=== PATIENT | female | born 1970 | race Caucasian/White ===

== ENCOUNTER 2024-05-16 14:10 | Emergency (ER) | payer OTHER ==
[2024-05-16 14:34] VITALS: TEMP 97.5; O2SAT 97
--- NOTE | 2024-05-16 14:43 | ERPHSYRPT ---
- History of Present Illness Time Seen by Provider: 05/16/24 14:42 Source: patient Exam Limitations: no limitations Patient Subjective Stated Complaint: Pt reports she was moving a box when she tripped and fell landing on left shoulder. Pt has had surgery on left shoulder and is scheduled to have another surgery this fall due to rotator cuff tear. Triage Nursing Assessment: Pt alert and oriented x3. Respirations easy/nonlabored. Skin w/p/d. Ambulated to ED cot without difficulty. Accompanied by sister. Left shoulder pain rated 7/10. Physician History: Patient fell on left shoulder causing a stretch of brachial plexus. She has a known rotator cuff tear that needs surgery and she is concerned she has fractured her shoulder or worsened the tear. She has intermittent numbness and tingling of the LUE. Patient is also extremely anxious due to recent life trauma and would like to trial Cymbalta to help with anxiety and her nerve pain. Occurred: yesterday Method of Injury: fell Quality: constant, throbbing Severity of Pain-Max: moderate Severity of Pain-Current: moderate Extremities Pain Location: shoulder: left Modifying Factors: Improves With: rest. Worsens With: movement Associated Symptoms: none Allergies/Adverse Reactions: hydrocodone Allergy (Verified 05/16/24 14:46) Shortness of Breath hydromorphone [From Dilaudid] Adverse Reaction (Verified 05/16/24 14:46) morphine Adverse Reaction (Verified 05/16/24 14:46) Hives oxycodone Adverse Reaction (Verified 05/16/24 14:46) promethazine [From Phenergan] Adverse Reaction (Verified 05/16/24 14:46) Home Medications: Fluoxetine HCl [Prozac] 80 mg PO DAILY 05/16/24 [History] Hx Tetanus, Diphtheria Vaccination/Date Given: Yes Hx Influenza Vaccination/Date Given: Yes Hx Pneumococcal Vaccination/Date Given: No Travel Risk - International Travel Have you traveled outside of the country in past 3 weeks: No - Emerging Infectious Disease Are you exhibiting symptoms associated with any current EIDs: No - Review of Systems Psychological: Anxiety All Other Systems: Reviewed and Negative - Past Medical History Pertinent Past Medical History: Yes Neurological History: No Pertinent History Cardiac History: No Pertinent History Respiratory History: No Pertinent History Endocrine Medical History: No Pertinent History Musculoskeletal History: Degenerative Disk Disease Psycho-Social History: Anxiety Other Medical History: CINTHIA IS HAVING DIFFICULTY WITH SLEEPING, CAN'T LIFT LAUNDRY WITH LEFT HAND, DECREASED WASHING HAIR, DRYING HAIR, DOING DISHES (LIKE POTS AND PANS), VACUUMING, BASICALLY PAIN WITH ANY LIFTING OR USING ARMS. - Past Surgical History Past Surgical History: Yes Gastrointestinal: Cholecystectomy Musculoskeletal: Orthopedic Surgery Female Surgical History: Hysterectomy, Section Other Surgical History: thoracic outlet - Female History Hx Now: No - Social History Smoking Status: Former smoker Exposure to second hand smoke: No Drug Use: none - Social Determinants of Health Will the patient participate in the screening: Declined to provide - Nursing Vital Signs Nursing Vital Signs: Initial Vital Signs Temperature 97.5 F 05/16/24 14:19 Pulse Rate 91 H 05/16/24 14:19 Respiratory Rate 16 05/16/24 14:19 Blood Pressure 121/82 05/16/24 14:19 O2 Sat by Pulse Oximetry 97 05/16/24 14:19 Pain Scale Pain Intensity 5 - Physical Exam General Appearance: anxiety Shoulder Exam: normal inspection, bone tenderness, limited ROM, pain, No asymmetry, No deformity, No ecchymosis, No soft tissue tenderness, No swelling Elbow/Forearm Exam: normal inspection, non-tender, no evidence of injury, normal ROM Wrist Exam: normal inspection, non-tender, no evidence of injury, normal ROM Hand Exam: normal inspection, non-tender, no evidence of injury, normal ROM Neuro/Tendon Exam: normal sensation, normal motor functions, normal tendon functions, responds to pain, no evidence tendon injury Mental Status Exam: alert, oriented x 3, cooperative Skin Exam: normal color, warm, dry SpO2 Interpretation: normal SpO2: 97 O2 Delivery: Room Air - Course Nursing assessment & vital signs reviewed: Yes - Radiology Exams Left Clavicle X-ray Interpretation: Teleradiologist Report, No Fracture Left Shoulder X-ray Interpretation: Teleradiologist Report, No Fracture Ordered Tests: Medication Summary Discontinued Medications Generic Name Dose Route Start Last Admin Trade Name Freq PRN Reason Stop Dose Admin Alprazolam 1 mg 05/16/24 15:05 05/16/24 15:38 Alprazolam 0.5 Mg Tablet PO 05/16/24 15:06 Not Given STAT ONE Alprazolam 0.25 mg 05/16/24 15:15 05/16/24 15:30 Alprazolam 0.25 Mg Tablet PO 05/16/24 15:16 0.25 mg STAT ONE Administration Alprazolam Confirm 05/16/24 15:39 Alprazolam 0.25 Mg Tablet Administered 05/16/24 15:40 Dose 0.25 mg .ROUTE .STK-MED ONE Ketorolac Tromethamine 10 mg 05/16/24 15:15 05/16/24 15:30 Ketorolac Tromethamine 10 Mg Tablet PO 05/16/24 15:16 10 mg ONCE ONE Administration - Progress Progress: improved Progress Note: No acute fracture appreciated on imaging of clavicle and shoulder. Encouraged patient to schedule f/u with orthopedic surgeon to get RC repaired. Likely has a stretch injury to brachial plexus, no motor weakness appreciated. Xanax given today, will send some home with patient to use as a fire extinguisher when needed. Patient changed to Cymbalta. Will stop Prozac and taper Gabapentin. Counseled pt/family regarding: diagnosis, need for follow-up, rad results Medical Desision Making - Diagnostic Testing Diagnostic test were ordered, analyzed, and reviewed by me: Yes Radiological Interpretation: Interpreted by me, Reviewed by me, Teleradiologist Report - Risk of complications The pt has a mod risk of morbidity or mortality based on: Need for prescription drug management - Departure Departure Disposition: Home Clinical Impression: Left shoulder pain, Left rotator cuff tear, Anxiety, Brachial plexus injury, left Condition: Good Critical Care Time: No Referrals: BLAKE HUGHES [Primary Care Provider] - Follow up/PCP as directed Instructions: Rotator cuff injury, Panic disorder Additional Instructions: Will start Cymbalta and titrate down on her gabapentin over the next week. Recommend 300 mg 3 times daily for 2 days followed by 300 mg 2 times daily for 2 days and finally 300 mg daily for 3 days. Stop Prozac once starting Cymbalta Prescriptions: Duloxetine HCl [Cymbalta] 20 mg PO DAILY 30 Days #30 cap Ketorolac Trometh 10 mg Tab [TORAdol 10 MG TABLET] 10 mg PO TID PRN 5 Days #15 tablet PRN Reason: Pain ALPRAZolam 0.25 MG [xanAX 0.25 MG] 0.25 mg PO TID PRN 5 Days #15 tablet PRN Reason: Anxiety
[2024-05-16] MEDS: xanAX 0.25 MG PO ONE (15:30)
[2024-05-16] MEDS: TORAdol 10 MG TABLET PO ONE (15:30)
[2024-05-16] MEDS: xanAX 0.5 MG PO ONE (15:38)
[2024-05-16] MEDS ORDERED: xanAX 0.25 MG ONE (15:39)
[2024-05-16 15:43] VITALS: BP 127/89; PULSE 80; RESP 18
--- NOTE | 2024-05-16 15:56 | XRAY ---
CLINICAL HISTORY: left should injury/pain from fall COMPARISON: None. TECHNIQUE: X-ray of the left shoulder was performed in 3 views: AP external rotation, AP internal rotation and Y views. FINDINGS: Osteoarthritis of the acromioclavicular joint. No evidence of fracture or dislocation noted. The left first rib is not visualized. Relative radiolucent area seen at the distal end of the left clavicle. Normal bone density is seen. Normal shoulder articulation and joint spaces are seen. IMPRESSION: 1. No acute osseous injury. 2. AC joint arthritis. 3. The left first rib is not visualized. Possible surgically removed, normal variant or resorbed. 4. Relative radiolucent area seen at the distal end of the left clavicle. 5. Further CT/MRI assessment is advised for more details if clinically indicated. DISCLAIMER:A subtle bone abnormality or fracture may not be readily apparent on x-rays, thus clinical correlation and further imaging including follow up CT, MRI, or follow up x-rays are advised as needed. Electronically Signed by: Ledy Mahoney MD. (05/16/2024 15:52:06 EDT)
--- NOTE | 2024-05-16 15:58 | XRAY ---
CLINICAL HISTORY: fall, left shoulder/clavicle pain COMPARISON: None. TECHNIQUE: X-ray of the left clavicle was performed in 2 views: AP and axial views. FINDINGS: Normal bone mineralization. Cortical margins of the clavicle is within normal limits. No acute fracture or dislocation is noted. The left first rib is not visualized. Relative radiolucent area seen at the distal end of the left clavicule Sternoclavicular joint appears normal. Acromioclavicular joint show narrowing of the joint space with articular surface sclerosis. Soft tissues show no abnormality. IMPRESSION: 1. No acute osseous injury. 2. AC joint arthritis. 3. The left first rib is not visualized. Possible surgically removed, normal variant or resorbed. 4. Relative radiolucent area seen at the distal end of the left clavicle. 5. Further CT/MRI assessment is advised for more details if clinically indicated. DISCLAIMER:A subtle bone abnormality or fracture may not be readily apparent on x-rays, thus clinical correlation and further imaging including follow up CT, MRI, or follow up x-rays are advised as needed. Electronically Signed by: Ledy Mahoney MD. (05/16/2024 15:54:46 EDT)
== END 2024-05-16 15:49 | disposition home or self-care (01) ==
LOC: ED 14:10
DX: M25.512 Pain in left shoulder (principal); M75.102 Unspecified rotator cuff tear or rupture of left shoulder, not specified as traumatic; F41.9 Anxiety disorder, unspecified; S14.3XXA Injury of brachial plexus, initial encounter; W01.0XXA Fall on same level from slipping, tripping and stumbling without subsequent striking against object, initial encounter; R20.2 Paresthesia of skin; Z79.899 Other long term (current) drug therapy
CPT/HCPCS: 73000; 73030; 99283; A9270-GY